=== PATIENT | male | born 1950 | race Two or more races ===

== ENCOUNTER 2018-05-13 14:30 | Inpatient (IN) | payer OTHER ==
[~2018-05-13] VITALS: Ht 162.6 cm; Wt 61.2 kg
[2018-05-14] MEDS ORDERED: NORVASC5 MG PO (10:04)
[2018-05-22] MEDS ORDERED: INTESTINEX680 M1 PO (13:21)
[2018-05-22] MEDS ORDERED: PERCOCET 5-3251 EACH PO (13:21)
[2018-05-22] MEDS ORDERED: OMEPRAZOLE20 MG PO (13:22)
== END 2018-05-22 16:18 | disposition home or self-care (01) | DRG 330 ==
LOC: SURH 05-19 05:40 → O/R 05-19 05:40 → SURG 05-19 08:45 → SURH 05-19 16:15
PROVIDERS: Surgery
PROC: 0W9G4ZX Drainage of Peritoneal Cavity, Percutaneous Endoscopic Approach, Diagnostic (ICD-10-PCS; 2018-05-19)
PROC: 3E0F7GC Introduction of Other Therapeutic Substance into Respiratory Tract, Via Natural or Artificial Opening (ICD-10-PCS; 2018-05-19)
PROC: 0DTN4ZZ Resection of Sigmoid Colon, Percutaneous Endoscopic Approach (ICD-10-PCS; principal; 2018-05-19 10:30)
PROC: BW2G1ZZ Computerized Tomography (CT Scan) of Pelvic Region using Low Osmolar Contrast (ICD-10-PCS; 2018-05-22)
DX: K57.20 Diverticulitis of large intestine with perforation and abscess without bleeding (principal); N32.1 Vesicointestinal fistula; I10 Essential (primary) hypertension